=== PATIENT | male | born 1950 | race African-American/Black ===

== ENCOUNTER 2016-12-01 11:53 | Emergency (ER) | payer MEDICAID, MEDICARE ==
[~2016-12-01] VITALS: Ht 188 cm; Wt 84.4 kg
--- NOTE | 2016-12-01 13:00 | PHYS DOC ---
Past Medical History Past Medical History: Arthritis, CVA, GERD Additional Past Medical Histor: CHRONIC BACK PAIN Past Surgical History: Other Additional Past Surgical Histo: HERNIA Alcohol Use: Occasionally Drug Use: None Adult General Chief Complaint Chief Complaint: EARACHE/EAR PAIN [facility] HPI Patient is a 66 year old male presents to the emergency department stating that he's been having left ear discomfort at night when he sleeps he states that he feels like there is something in it. Patient continues to state that he is also been having left eye discomfort in which she states that his vision is decreasing. He states this is been going on for over a year which she has been seen his primary care physician. Patient states that he has a family history of tumors in which presented the same way as his vision and it or discomfort has been. Patient does have a slightly elevated blood pressure at this time. Denies any previous medical problems. Review of Systems Review of Systems Constitutional: Denies fever or chills [] Eyes: Denies change in visual acuity, redness, or eye pain. Decreased vision in his left eye HENT: Denies nasal congestion or sore throat. Complaint of feeling like there is something in his left ear. Cardiovascular: No additional information not addressed in HPI [] GI: Denies abdominal pain, nausea, vomiting, bloody stools or diarrhea [] : Denies dysuria or hematuria [] Musculoskeletal: Denies back pain or joint pain [] Integument: Denies rash or skin lesions [] Neurologic: Denies headache, focal weakness or sensory changes [] Endocrine: Denies polyuria or polydipsia [] Allergies Allergies Allergies Coded Allergies Type Severity Reaction Last Updated Verified bradford Allergy Intermediate 12/01/16 No nut - unspecified Allergy Intermediate 12/01/16 No peanut Allergy Intermediate 12/01/16 No Physical Exam Physical Exam Constitutional: Well developed, well nourished, no acute distress, non-toxic appearance. [] HENT: Normocephalic, atraumatic, bilateral external ears normal, oropharynx moist, no oral exudates, nose normal. Bilateral tympanic membranes appear to be normal throat with postnasal drip with erythematous noted. Eyes: PERRLA, EOMI, conjunctiva normal, no discharge. [] Neck: Normal range of motion, no tenderness, supple, no stridor. [] Cardiovascular:Heart rate regular rhythm, no murmur [] Lungs & Thorax: Bilateral breath sounds clear to auscultation [] Skin: Warm, dry, no erythema, no rash. [] Back: No tenderness Extremities: No tenderness, no cyanosis, no clubbing, ROM intact, no edema. [] Neurologic: Alert and oriented X 3, normal motor function, normal sensory function, no focal deficits noted. [] Psychologic: Affect normal, judgement normal, mood normal. [] Current Patient Data Vital Signs Vital Signs Date Time Temp Pulse Resp B/P (MAP) Pulse Ox O2 Delivery O2 Flow Rate FiO2 12/01/16 12:15 98.2 74 18 97 Room Air 98.2 EKG EKG [] Radiology/Procedures Radiology/Procedures [][facility] [address] [place] [address] IMAGING REPORT Signed PATIENT: FIDE LAMAR ACCOUNT: [id number] : 1950 LOCATION: ER AGE: 66 SEX: M EXAM STATUS: REG ER ORD. PHYSICIAN: MOOK ALAN APRN REASON: vision problems, hearing problems. family hx of brain tumors PROCEDURE: CT HEAD WO CONTRAST CT of the head without contrast, 12/01/2016: History: Blurred vision, left ear pain The ventricles are within normal limits in size. There is no shift of the midline structures. There is no evidence of acute intracranial hemorrhage or mass effect. IMPRESSION: No acute intracranial abnormality is detected. PQRS Compliance Statement: One or more of the following individualized dose reduction techniques were utilized for this examination: 1. Automated exposure control 2. Adjustment of the mA and/or kV according to patient size 3. Use of iterative reconstruction technique DICTATED and SIGNED BY: MERLY HI MD DATE: 12/01/16 6184 CC: MOOK ALAN APRN; NO PCP ~ Course & Med Decision Making Course & Med Decision Making Pertinent Labs and Imaging studies reviewed. (See chart for details) CT scan of the head was negative for any abnormalities. Patient will be discharged home with recommendations to follow-up with an consumer loan manager in regards to his vision. Patient will also be encouraged to follow-up with an ENT for his ear discomfort. Patient provided with discharge instructions, treatment regimens and follow-up recommendations. Patient agrees with discharge instructions at this time. All concerns and questions have been answered took for the patient at patient's bedside. [] Dragon Disclaimer Dragon Disclaimer This electronic medical record was generated, in whole or in part, using a voice recognition dictation system. Departure Departure Impression: Primary Impression: Otalgia of left ear Additional Impression: Left eye symptoms Disposition: HOME, SELF-CARE Condition: STABLE Referrals: NO PCP (PCP) EVE LAO MD Patient Instructions: Eye - Blurred Vision, Otalgia-Brief Additional Instructions: Your CT scan was negative for any abnormalities. Your left ear did not appear to be infected no foreign bodies was noted in the ear as well. Follow-up to primary care physician or an ENT in regards to your left ear discomfort. Follow-up with an consumer loan manager in regards to your vision difficulty. Return back to emergency prior signs and symptoms of become worse. Problem Qualifiers MOOK ALAN APRN Dec 01, 2016 12:59
--- NOTE | 2016-12-01 13:38 | RAD ---
CT of the head without contrast, 12/01/2016: History: Blurred vision, left ear pain The ventricles are within normal limits in size. There is no shift of the midline structures. There is no evidence of acute intracranial hemorrhage or mass effect. IMPRESSION: No acute intracranial abnormality is detected. PQRS Compliance Statement: One or more of the following individualized dose reduction techniques were utilized for this examination: 1. Automated exposure control 2. Adjustment of the mA and/or kV according to patient size 3. Use of iterative reconstruction technique
[2016-12-01 14:07] VITALS: BP 164/79
== END 2016-12-01 14:07 | disposition home or self-care (01) ==
LOC: ER 11:53
DX: H92.02 Otalgia, left ear (principal); H53.8 Other visual disturbances; M19.90 Unspecified osteoarthritis, unspecified site; K21.9 Gastro-esophageal reflux disease without esophagitis; G89.29 Other chronic pain; Z86.73 Personal history of transient ischemic attack (TIA), and cerebral infarction without residual deficits; Z91.030 Bee allergy status; Z91.018 Allergy to other foods; Z91.010 Allergy to peanuts
CPT/HCPCS: 70450; 99284-25